=== PATIENT | male | born 1950 | race Caucasian/White ===

== ENCOUNTER → 2022-06-24 10:58 | Outpatient (CLI) | payer MEDICARE, OTHER, SELFPAY ==
[2022-06-24 11:33] LABS: Basophils # 0.1 K/mm3 (0-0.2); Basophils % 0.5 % (0.1-2.0); Eosinophils # 0.2 K/mm3 (0.0-0.4); Eosinophils % 1.2 % (0.1-12.0); Hematocrit 46.2 % (42.0-52.0); Hemoglobin 15.2 g/dL (14.1-18.0); Lymphocytes # 3.1 K/mm3 (0.7-4.5); Lymphocytes % 16.4 % (10-50); Mean Corpuscular Hemoglobin 32.1 pg (27.0-31.2); Mean Corpuscular Volume 97.2 fl (80-94); Mean Platelet Volume 8.2 fl (7.4-10.4); Monocytes # 1.5 K/mm3 (0.1-1.0); Monocytes % 8.1 % (1.7-9.3); Neutrophils % 73.8 % (37.0-80.0); Platelet Count 358 K/mm3 (142-424); Red Blood Count 4.75 M/mm3 (4.60-6.20); Red Cell Distribution Width 12.7 % (11.5-17.5); White Blood Count 18.9 K/mm3 (4.8-10.8)
[2022-06-24 11:38] LABS: MANUAL DIFFERENTIAL MANUAL DIFFERENTIAL (MANUAL DIFF)
[2022-06-24 12:14] LABS: Anion Gap 13.6 mEq/L (5-15); Blood Urea Nitrogen 20 mg/dl (9-20); Calcium 9.2 mg/dl (8.4-10.2); Carbon Dioxide 28 mmol/L (22.0-30.0); Chloride 97 mmol/L (98-107); Estimated Glomerular Filt Rate 73 ml/min (>60); GFR (African American) 89 ML/MIN (>60); Glucose 88 mg/dl (74-100); Potassium 4.6 mmoL/L (3.5-5.1); Sodium 134 mmol/L (136-145)
[2022-06-24 12:25] LABS: Lymphocytes % 19 % (10-50); Monocytes % 8 % (2-9); Neutrophils % 73 % (42-76); Platelet Estimate Normal; RBC Morphology Normal; Total Cells Counted 100
== END ==
PROVIDERS: PCP Family Medicine; Visit Provider Surgery
DX: K61.0 Anal abscess (principal)
CPT/HCPCS: 36415; 80048; 85007; 85025

== ENCOUNTER 2022-06-24 12:25 | Day surgery (SDC) | payer MEDICARE, OTHER, SELFPAY ==
[2022-06-24] VITALS (9 sets, daily range): BP systolic 141–163; BP diastolic 78–89; PULSE 85–100; RESP 15–20; TEMP 36.3–43; O2SAT 92–100; BMI 25.8
--- NOTE | 2022-06-24 15:16 | P.OP_ITS ---
Date of procedure: 06/24/22 Pre-op Diagnosis:: Perianal abscess Post-op Diagnosis:: Perirectal abscess Procedure performed:: Incision and drainage of complex perirectal abscess Surgeon:: David Lopez MD CIRCULAR SAWYER STONE:: Other Anesthesia: LMA Estimated blood loss (mL): 15 Clinical Note:: Patient is a 71-year-old male referred by Dr. Gonzalez for hemorrhoids.? Patient states that he had recently had some constipation last week and had to strain for bowel movements.? He had acute pain at the anorectal area.? He has been unable to sit.? He has not noticed any bleeding.? He does state that he had previously had hemorrhoid problems in the past and had them lanced .? He is unsure as to the details and nature of this.? He did have a colonoscopy with polyps in 2018. Patient was seen and examined in the office as an urgent outpatient evaluation earlier today. He was found to have some complex hemorrhoids. However, most notable was a left anterior lateral area of fluctuance with some induration which was tender consistent with probable perianal abscess. Arrangements were made for urgent incision and drainage. Patient was actually shown to have a leukocytosis of 19,000. He had complained of some urinary hesitancy. Operative findings:: He had a large complex perirectal abscess with tracking toward the perineum anteriorly. There is a very large amount of very foul-smelling thick pus. Operative note:: Consent was obtained patient was taken to the operating room. He was given preoperative intravenous antibiotics. In the operating room he was placed in a supine position. General anesthesia was induced via LMA. He was repositioned in modified lithotomy position. The area was prepped and draped in the standard surgical fashion. At this time in the operating room lighting he was found to have more significant erythema and induration as was noted in the office setting with some tracking of induration anteriorly towards the scrotum. Limited incision was made overlying the area of fluctuance. There was a large amount of thick extremely foul-smelling pus which exuded from the wound. This was sent for cultures. The wound was probed. There was tracking anteriorly. It was opened somewhat anteriorly to allow for good evacuation. Wound was probed breaking free any loculations. Wound was thoroughly irrigated with saline. Wetmore anoscope was inserted as the wound was probed and there was no definite communication with the rectal canal but it was very thin and tissue coverage between the abscess and rectal lumen. Local anesthetic was infiltrated. The wound was packed with a 1 inch plain packing gauze. Clean dry sterile dressing was applied. I will make arrangements for him to continue outpatient oral antibiotics and have the wound packed through outpatient. I will see him in the office in a few days. He is at risk of forming perianal fistula. Condition: stable Disposition: PACU Complications:: None immediately apparent
--- NOTE | 2022-06-24 15:39 | P.PN_ITS ---
[facility] Disclaimer: The information contained in this section may have been updated after the patient was seen, as this information can be updated by other users. Medical History History of inguinal hernia Surgical History History of colonoscopy History of inguinal hernia repair Family History (Updated 06/24/22 @ 13:25 by Gudelia Cassidy RN) Other Family history of cancer Social History (Updated 06/24/22 @ 13:25 by Gudelia Cassidy RN) Smoking Status: Current every day smoker alcohol intake: current substance use type: denies use current occupational status: retired Travel in the last 8 weeks: None household members: other housing: house lives independently: Yes marital status: single education level: high school service: No do you feel safe at home: Yes victim of physical abuse: No victim of emotional abuse: No victim of sexual abuse: No would you like helpful sources: No [facility] Anesthesia Checklist Patient Identification Patient Identification: Arm Band and Family Structural Data Admitted From: Home Planned Operative Procedure/s: I and D Rectal abscess Consent for Planned Operative Procedure(s) Verified: Yes Verified Documents: Surgical Consent and History and Physical NPO Status Verified Time NPO: 00:00 Additional verifications Patient : No Anesthesia Reactions: No Hx Blood Transfusions: No Blood Transfusion Reaction: No Cephalosporin Allergy: No Previous Colonoscopy: No Cardiovascular Assessment Peripheral Edema: No Airway Assessment C-Spine Mobility Assessed: Yes TMJ Mobility Assessed: Yes Dentition: Poor Dentition Neurological Assessment Level of Consciousness: Awake, Alert, Appropriate and Follows Commands Hx Seizures: No Numbness or tingling in extremities: No Anesthesia Plan Anesthesia Risk discussed: Yes ASA Class: II Anesthesia Type: General
--- NOTE | 2022-06-24 15:40 | EXP.ANES.I ---
[facility] Anesthesia Record Part I Anesthesia Record I Intake, IV Amount: 600 Estimated blood loss (mL): 0 Urine output (mL): 0 Blood Products used (#): none Blood Pressure: 149/80 SaO2: 92 Pulse Rate: 88 Respiratory Rate: 20 Temperature: 97.4 F Patient is:: Drowsy and Stable Stable to PACU at:: 15:26
--- NOTE | 2022-06-26 08:25 | EXP.ANES.II ---
[facility] Anesthesia Record Part II Anesthesia Record Part II Discharge Time: 15:46 Destination: Surgical Day Care (OP Surgery) PACU nurse assessment reviewed?: Yes Patient Condition:: Good Anesthesia Complications:: None Swallowing reflex intact?: Yes Cyanosis?: No Blood Pressure: 150/83 Pulse Rate: 88 Temperature: 99.2 F Mental Status: Alert & Oriented Pain level:: 0 Nausea and/or vomitting:: None Intake, IV Amount: 0
[2022-06-26 08:26] VITALS: BP 150/83; PULSE 88; TEMP 37.3
== END 2022-06-24 16:24 | disposition home or self-care (01) ==
PROVIDERS: PCP Family Medicine; Visit Provider Surgery
DX: K61.1 Rectal abscess (principal); Z72.0 Tobacco use; Z79.899 Other long term (current) drug therapy
CPT/HCPCS: 46040; 36415; 80048; 85007; 85025; 87070; 87075; 87077; 87186; 87205; 96374; J2405

== ENCOUNTER 2022-06-25 12:39 | Outpatient (CLI) | payer MEDICARE, OTHER, SELFPAY | END 2022-06-25 13:10 | disposition home or self-care (01) | LOC: INF 12:41 | PROVIDERS: PCP Family Medicine; Visit Provider Surgery | DX: Z48.01 Encounter for change or removal of surgical wound dressing (principal); K61.0 Anal abscess | CPT/HCPCS: G0463 ==

== ENCOUNTER 2022-06-26 12:47 | Outpatient (CLI) | payer MEDICARE, OTHER, SELFPAY | END 2022-06-26 13:23 | disposition home or self-care (01) | LOC: INF 12:48 | PROVIDERS: PCP Obstetrics & Gynecology; Visit Provider Surgery | DX: K61.0 Anal abscess; Z48.01 Encounter for change or removal of surgical wound dressing | CPT/HCPCS: G0463 ==

== ENCOUNTER 2022-06-27 12:40 | Outpatient (CLI) | payer MEDICARE, OTHER, SELFPAY | END 2022-06-27 13:15 | disposition home or self-care (01) | LOC: INF 12:40 | PROVIDERS: PCP Family Medicine; Visit Provider Surgery | DX: K61.0 Anal abscess (principal); Z48.01 Encounter for change or removal of surgical wound dressing | CPT/HCPCS: G0463 ==

== ENCOUNTER 2022-06-28 12:41 | Outpatient (CLI) | payer MEDICARE, OTHER, SELFPAY ==
[2022-06-28 13:08] VITALS: BMI 26.6
== END 2022-06-28 13:28 | disposition home or self-care (01) ==
PROVIDERS: PCP Family Medicine; Visit Provider Surgery
DX: K61.0 Anal abscess (principal); Z48.01 Encounter for change or removal of surgical wound dressing
CPT/HCPCS: G0463

== ENCOUNTER 2022-06-29 12:38 | Outpatient (CLI) | payer MEDICARE, OTHER, SELFPAY ==
[2022-06-29 12:45] VITALS: BMI 26.6
[2022-06-29 13:17] VITALS: BP 139/77; PULSE 98; RESP 16; TEMP 36.4; O2SAT 98
== END 2022-06-29 13:11 | disposition home or self-care (01) ==
LOC: INF 12:40
PROVIDERS: PCP Family Medicine; Visit Provider Surgery
DX: K61.0 Anal abscess (principal); Z48.01 Encounter for change or removal of surgical wound dressing
CPT/HCPCS: G0463

== ENCOUNTER 2022-06-30 12:54 | Outpatient (CLI) | payer MEDICARE, OTHER, SELFPAY | END 2022-06-30 13:25 | disposition home or self-care (01) | LOC: INF 12:54 | PROVIDERS: PCP Family Medicine; Visit Provider Surgery | DX: K61.0 Anal abscess (principal); Z48.01 Encounter for change or removal of surgical wound dressing | CPT/HCPCS: G0463 ==

== ENCOUNTER 2022-07-01 12:56 | Outpatient (CLI) | payer MEDICARE, OTHER, SELFPAY | END 2022-07-01 13:15 | disposition home or self-care (01) | LOC: INF 12:56 | PROVIDERS: PCP Family Medicine; Visit Provider Surgery | DX: K61.0 Anal abscess (principal); Z48.01 Encounter for change or removal of surgical wound dressing | CPT/HCPCS: G0463 ==

== ENCOUNTER 2022-07-02 12:50 | Outpatient (CLI) | payer MEDICARE, OTHER, SELFPAY | END 2022-07-02 13:00 | disposition home or self-care (01) | LOC: INF 12:51 | PROVIDERS: PCP Family Medicine; Visit Provider Surgery | DX: K61.0 Anal abscess (principal); Z48.01 Encounter for change or removal of surgical wound dressing | CPT/HCPCS: G0463 ==

== ENCOUNTER 2022-07-04 13:49 | Outpatient (CLI) | payer MEDICARE, OTHER, SELFPAY | END 2022-07-04 14:20 | disposition home or self-care (01) | LOC: INF 13:50 | PROVIDERS: PCP Family Medicine; Visit Provider Surgery | DX: K61.0 Anal abscess (principal); Z48.01 Encounter for change or removal of surgical wound dressing | CPT/HCPCS: G0463 ==

== ENCOUNTER 2022-07-05 12:23 | Outpatient (CLI) | payer MEDICARE, OTHER, SELFPAY ==
[2022-07-05 12:44] VITALS: BP 145/78; PULSE 82; RESP 20; TEMP 36.9; O2SAT 97
== END 2022-07-05 12:50 | disposition home or self-care (01) ==
LOC: INF 12:25
PROVIDERS: PCP Family Medicine; Visit Provider Surgery
DX: K61.0 Anal abscess (principal); Z48.01 Encounter for change or removal of surgical wound dressing
CPT/HCPCS: G0463

== ENCOUNTER 2022-07-06 12:12 | Outpatient (CLI) | payer MEDICARE, OTHER, SELFPAY ==
[2022-07-06 12:20] VITALS: BP 156/85; PULSE 82; RESP 20; O2SAT 96
== END 2022-07-06 12:40 | disposition home or self-care (01) ==
LOC: INF 12:13
PROVIDERS: PCP Family Medicine; Visit Provider Surgery
DX: K61.0 Anal abscess (principal); Z48.01 Encounter for change or removal of surgical wound dressing
CPT/HCPCS: G0463

== ENCOUNTER 2022-07-07 14:16 | Outpatient (CLI) | payer MEDICARE, OTHER, SELFPAY | END 2022-07-07 14:35 | disposition home or self-care (01) | LOC: INF 14:17 | PROVIDERS: PCP Family Medicine; Visit Provider Surgery | DX: K61.0 Anal abscess (principal); Z48.01 Encounter for change or removal of surgical wound dressing | CPT/HCPCS: G0463 ==

== ENCOUNTER 2022-07-08 13:11 | Outpatient (CLI) | payer MEDICARE, OTHER, SELFPAY | END 2022-07-08 13:30 | disposition home or self-care (01) | LOC: INF 13:14 | PROVIDERS: PCP Family Medicine; Visit Provider Surgery | DX: K61.0 Anal abscess (principal); Z48.01 Encounter for change or removal of surgical wound dressing | CPT/HCPCS: G0463 ==

== ENCOUNTER 2022-07-09 10:56 | Outpatient (CLI) | payer MEDICARE, OTHER, SELFPAY | END 2022-07-09 11:12 | disposition home or self-care (01) | LOC: INF 10:57 | PROVIDERS: PCP Family Medicine; Visit Provider Surgery | DX: K61.0 Anal abscess (principal); Z48.01 Encounter for change or removal of surgical wound dressing | CPT/HCPCS: G0463 ==

== ENCOUNTER 2022-07-10 12:52 | Outpatient (CLI) | payer MEDICARE, OTHER, SELFPAY | END 2022-07-10 13:05 | disposition home or self-care (01) | LOC: INF 12:52 | PROVIDERS: PCP Family Medicine; Visit Provider Surgery | DX: K61.1 Rectal abscess (principal); Z48.01 Encounter for change or removal of surgical wound dressing | CPT/HCPCS: G0463 ==

== ENCOUNTER 2022-07-11 13:07 | Outpatient (CLI) | payer MEDICARE, OTHER, SELFPAY | END 2022-07-11 13:20 | disposition home or self-care (01) | LOC: INF 13:08 | PROVIDERS: PCP Family Medicine; Visit Provider Surgery | DX: Z48.01 Encounter for change or removal of surgical wound dressing (principal); K61.0 Anal abscess | CPT/HCPCS: G0463 ==

== ENCOUNTER → 2022-07-12 12:28 | Outpatient (CLI) | payer MEDICARE, OTHER, SELFPAY ==
[2022-07-12 14:26] VITALS: BP 154/87; PULSE 87; RESP 20; TEMP 36.7; O2SAT 97
== END ==
PROVIDERS: PCP Family Medicine; Visit Provider Surgery
DX: Z48.01 Encounter for change or removal of surgical wound dressing (principal); K61.0 Anal abscess
CPT/HCPCS: G0463

== ENCOUNTER → 2022-07-13 13:37 | Outpatient (CLI) | payer MEDICARE, OTHER, SELFPAY ==
[2022-07-13 02:20] VITALS: BP 177/90; PULSE 90; RESP 20; TEMP 36.7; O2SAT 92
[2022-07-13 13:47] VITALS: BMI 26.6
--- NOTE | 2022-07-13 14:20 | PC.NURSE ---
DSG changed. Packed with Nugauze. Placed 2x2 with tegaderm.
== END ==
PROVIDERS: PCP Family Medicine; Visit Provider Surgery
DX: Z48.01 Encounter for change or removal of surgical wound dressing (principal); K61.0 Anal abscess
CPT/HCPCS: G0463

== ENCOUNTER 2022-07-14 13:51 | Outpatient (CLI) | payer MEDICARE, OTHER, SELFPAY | END 2022-07-14 14:17 | disposition home or self-care (01) | LOC: INF 13:51 | PROVIDERS: PCP Family Medicine; Visit Provider Surgery | DX: Z48.01 Encounter for change or removal of surgical wound dressing (principal); K61.0 Anal abscess | CPT/HCPCS: G0463 ==

== ENCOUNTER 2022-07-15 12:53 | Outpatient (CLI) | payer MEDICARE, OTHER, SELFPAY | END 2022-07-15 13:10 | disposition home or self-care (01) | LOC: INF 12:55 | PROVIDERS: PCP Family Medicine; Visit Provider Surgery | DX: Z48.01 Encounter for change or removal of surgical wound dressing (principal); K61.0 Anal abscess | CPT/HCPCS: G0463 ==

== ENCOUNTER 2022-07-16 12:50 | Outpatient (CLI) | payer MEDICARE, OTHER, SELFPAY | END 2022-07-16 13:45 | disposition home or self-care (01) | LOC: INF 12:51 | PROVIDERS: PCP Family Medicine; Visit Provider Surgery | DX: K61.0 Anal abscess (principal); Z48.01 Encounter for change or removal of surgical wound dressing | CPT/HCPCS: G0463 ==

== ENCOUNTER 2022-10-03 08:18 | Day surgery (SDC) | payer MEDICARE, OTHER, SELFPAY ==
[2022-09-30 14:26] VITALS: BMI 25.8
[2022-10-03 08:28] VITALS: BP 167/107; PULSE 89; RESP 18; TEMP 36.6; O2SAT 94
--- NOTE | 2022-10-03 08:53 | P.PNANES_ITS ---
[facility] Disclaimer: The information contained in this section may have been updated after the patient was seen, as this information can be updated by other users. Medical History History of inguinal hernia Surgical History History of colonoscopy History of incision and drainage History of inguinal hernia repair Family History Other Family history of cancer Social History Smoking Status: Current every day smoker alcohol intake: current substance use type: denies use current occupational status: retired Travel in the last 8 weeks: None household members: other housing: house lives independently: Yes marital status: single education level: high school service: No caffeine: Yes do you feel safe at home: Yes victim of physical abuse: No victim of emotional abuse: No victim of sexual abuse: No would you like helpful sources: No [facility] Anesthesia Checklist Patient Identification Patient Identification: Arm Band Structural Data Admitted From: Home Planned Operative Procedure/s: Colonoscopy Consent for Planned Operative Procedure(s) Verified: Yes Verified Documents: Surgical Consent and History and Physical NPO Status Verified Time NPO: 07:00 (black coffee) Additional verifications Anesthesia Reactions: No Hx Blood Transfusions: No Blood Transfusion Reaction: No Airway Assessment C-Spine Mobility Assessed: Yes TMJ Mobility Assessed: Yes Dentition: Good Dentition Neurological Assessment Level of Consciousness: Awake and Alert Anesthesia Plan Anesthesia Risk discussed: Yes Anesthesia Plan: Verified ASA Class: II Anesthesia Type: MAC
--- NOTE | 2022-10-03 09:12 | EXP.GEN.HP ---
HPI HPI HPI: Patient presents for colonoscopy. He is a 71-year-old male who underwent incision and drainage of perianal abscess on 06/24/2022. The area has healed. He has not had any drainage. He does take a couple stool softeners. He previously had stated he is due for a colonoscopy. He had previous colonoscopy he believes about 5 or 6 years ago and believes he had polyps. He was scheduled for colonoscopy. [facility] Disclaimer: The information contained in this section may have been updated after the patient was seen, as this information can be updated by other users. Medical History History of inguinal hernia Surgical History History of colonoscopy History of incision and drainage History of inguinal hernia repair Family History Other Family history of cancer Social History Smoking Status: Current every day smoker alcohol intake: current substance use type: denies use current occupational status: retired Travel in the last 8 weeks: None household members: other housing: house lives independently: Yes marital status: single education level: high school service: No caffeine: Yes do you feel safe at home: Yes victim of physical abuse: No victim of emotional abuse: No victim of sexual abuse: No would you like helpful sources: No Meds Home Medications and Allergies Home Medications Medication Instructions Recorded Confirmed Type metoprolol succinate 25 mg 25 mg PO DAILY HTN 06/24/22 10/03/22 History tablet,extended release 24 hr New Prescriptions to Start Prescriptions: Allergies Allergy/AdvReac Type Severity Reaction Status Date / Time No Known Allergies Allergy Verified 10/03/22 08:27 Exam Data for Last 24 hours Vital signs and Labs for Last 24 Hours: Temp Pulse Resp BP Pulse Ox O2 Del Method 98 F 89 18 167/107 H 94 L Room Air 10/03/22 08:28 10/03/22 08:28 10/03/22 08:28 10/03/22 08:28 10/03/22 08:28 10/03/22 08:28 I & O for Last 24 hours: Intake & Output 09/30/22 10/01/22 10/02/22 10/03/22 11:59 11:59 11:59 11:59 Weight 170 lb Constitutional Constitutional: no acute distress *Routine HEENT Exam Head: Present normocephalic Eye: Present EOMI and PERRL ENT: Present mucous membranes moist *Routine Neck Exam Neck: Present supple; Absent lymphadenopathy *Routine Respiratory Exam Respiratory: Present CTA bilaterally *Routine Cardiovascular Exam Cardiovascular: Present RRR *Routine Abdominal Exam Abdominal: Present soft and normoactive bowel sounds; Absent tenderness *Routine Rectal Exam Rectal:: deferred *Routine Genitalia Exam Genitalia:: deferred *Routine Extremities Exam Extremities: Absent cyanosis, clubbing or edema *Routine Skin Exam Skin: Present warm; Absent rash *Routine Neurological Exam Neurological: Present alert and oriented X3 Assessment and Plan *Assessment and plan (1) History of colon polyps: Status: Acute Category: Medical Code(s): Z86.010 - Personal history of colonic polyps Plan Colonoscopy
--- NOTE | 2022-10-03 10:29 | HMH.SCOPE ---
Procedure: Date: 10/03/22 Patient Date of :: 1950 Procedure Performed:: Total colonoscopy to terminal ileum with numerous polypectomy Indications:: Patient presents for colonoscopy. He is a 71-year-old male who underwent incision and drainage of perianal abscess on 06/24/2022. The area has healed. He has not had any drainage. He does take a couple stool softeners. He previously had stated he is due for a colonoscopy. He had previous colonoscopy he believes about 5 or 6 years ago and believes he had polyps. He was scheduled for colonoscopy. Performing Provider:: David Lopez MD Referring Provider:: Frank Gonzalez MD Sedation:: MAC sedation Procedure:: Patient history was obtained and appropriate physical examination was performed. Patient's medications and allergies were reviewed. Informed consent was obtained after explaining the benefits, alternatives, and risks of the procedure including, but not limited to, bleeding, perforation, missed lesions, and adverse reaction to anesthesia medications. Patient was transported to endoscopy procedure room. Patient was connected to monitoring devices. Throughout the procedure the patient's blood pressure, pulse, and oxygen saturations were monitored continuously. Patient identification and planned procedure were verified by the staff. Patient was positioned in lateral decubitus position. Digital anorectal exam was performed. Variable stiffness Olympus colonoscope was inserted and advanced under direct visualization to the cecum. Adequacy of the colonic preparation was noted. The colonoscope was advanced a short distance into the terminal ileum. The colonoscope was then slowly withdrawn while carefully examining the color, texture, anatomy, and integrity of the mucosoa circumferentially. Within the rectum retroflexion was performed. Colonoscope was then withdrawn. Findings:: Colonic preparation was fair but good visualization was achieved with irrigation and suctioning. He had pandiverticulosis with significant diverticular disease of the left colon. In the cecum there was an adenomatous appearing polyp, moderate, removed with cold snare. Immediately distal to the ileocecal valve there was a tiny adenomatous appearing polyp removed with biopsy forceps. In the ascending colon there was a flat sessile irregular adenomatous polyp removed in a piecemeal fashion using hot snare. This was just distal to the previously mentioned polyp. In the transverse colon there was a polyp removed with cold snare. Ascending colon polyp removed with biopsy forceps in a piecemeal fashion. The sigmoid: There was a polyp removed with cold snare. Numerous left-sided polyps were noted which appeared hyperplastic. Rectosigmoid polyps were biopsied with biopsy forceps and 1 removed, larger 1, with a hot snare. In the rectum he had several hyperplastic appearing polyps, the larger were sampled with biopsy x4 and a couple with cold snare and 1 with hot snare. Retroflexion revealed evidence of prolapsing internal hemorrhoids. Colonoscope was withdrawn. . . Impression: Pandiverticulosis Numerous polyps as noted above, total of 15 polyps. Most notable was the ascending polyp removed in piecemeal fashion with hot snare. Most of the left-sided polyps appeared hyperplastic. Recommendations:: Follow-up colonoscopy pending pathology. Possibly as early as 1 year to ensure complete removal of the flat sessile adenomatous polyp in the ascending colon and reevaluate the numerous left-sided polyps. Complications:: None immediate Estimated blood obtained (mL): 2 Colonoscopy Component Colonoscopy Component Was a colonoscopy performed during today's procedure?: Yes Recommended follow up colonoscopy of at least 10 years?: No If no, follow up colonoscopy recommended in ___ years?: 1-2 Reason for not recommending >/= 10 yr follow-up interval?: See recommendations above
[2022-10-03 10:30] VITALS: BP 113/60; PULSE 59; RESP 14; TEMP 36.4; O2SAT 97
[2022-10-03 10:40] VITALS: BP 104/50; PULSE 58; RESP 16; O2SAT 96
[2022-10-03 10:50] VITALS: BP 122/72; PULSE 58; RESP 16; O2SAT 97
[2022-10-03 11:00] VITALS: BP 110/70; PULSE 58; RESP 18; TEMP 36.6; O2SAT 98
== END 2022-10-03 11:05 | disposition home or self-care (01) ==
PROVIDERS: PCP Family Medicine; Visit Provider Surgery
PROC: 0DJD8ZZ Inspection of Lower Intestinal Tract, Via Natural or Artificial Opening Endoscopic (ICD-10-PCS; principal; 2022-10-03 09:30)
DX: Z86.010 Personal history of colon polyps (principal); Z12.11 Encounter for screening for malignant neoplasm of colon; D12.0 Benign neoplasm of cecum; D12.2 Benign neoplasm of ascending colon; D12.3 Benign neoplasm of transverse colon; D12.5 Benign neoplasm of sigmoid colon; K57.30 Diverticulosis of large intestine without perforation or abscess without bleeding
CPT/HCPCS: 45380; 45385; 88305; J2704

== ENCOUNTER 2023-11-19 07:29 | Day surgery (SDC) | payer MEDICARE, OTHER, SELFPAY ==
[2023-11-16 13:40] VITALS: BMI 26.6
[2023-11-19] MEDS: LACTATED RINGERS 1000ML 1,000 ML 25 ML IV (07:43)
[2023-11-19 07:48] VITALS: BP 157/90; PULSE 81; RESP 18; TEMP 36.1; O2SAT 94
--- NOTE | 2023-11-19 08:15 | HMH.SCOPE ---
Procedure: Date: 11/19/23 Patient Date of :: 1950 Procedure Performed:: Total colonoscopy to terminal ileum with multiple polypectomy Indications:: Patient is a 73-year-old male from [facility]. Primary care provider is Jeremy Gonzalez MD. After he had recovered and healed from that he stated he was due for a colonoscopy. He did have a previous colonoscopy about 5 or 6 years ago in [place]. I performed colonoscopy on 10/03/2022. He was found to have pandiverticulosis with a total of 14 polyps removed many of which appeared to be hyperplastic. Most notable polyp was in the ascending colon which was removed in a piecemeal fashion using hot snare. Pathology revealed at least 5 tubular adenomas and a sessile serrated adenoma in the cecum. Given the large number of polyps and to rule out early recurrence of the polyp in the ascending colon recommendations were for follow-up colonoscopy in 1 year. . Performing Provider:: David Lopez MD . Referring Provider:: Jeremy Gonzalez MD . Sedation:: MAC sedation . Procedure:: Patient history was obtained and appropriate physical examination was performed. Patient's medications and allergies were reviewed. Informed consent was obtained after explaining the benefits, alternatives, and risks of the procedure including, but not limited to, bleeding, perforation, missed lesions, and adverse reaction to anesthesia medications. Patient was transported to endoscopy procedure room. Patient was connected to monitoring devices. Throughout the procedure the patient's blood pressure, pulse, and oxygen saturations were monitored continuously. Patient identification and planned procedure were verified by the staff. Patient was positioned in lateral decubitus position. Digital anorectal exam was performed. Variable stiffness Olympus colonoscope was inserted and advanced under direct visualization to the cecum. Adequacy of the colonic preparation was noted. The colonoscope was advanced a short distance into the terminal ileum. The colonoscope was then slowly withdrawn while carefully examining the color, texture, anatomy, and integrity of the mucosoa circumferentially. Within the rectum retroflexion was performed. Colonoscope was then withdrawn. Impression: In the right colon there was some liquid pasty stool. This was ultimately able of the cleared with high-volume trans colonoscopic irrigation and suctioning. There was evidence of some pandiverticulosis with significant sigmoid diverticuli. In the distal transverse colon there was a sessile polyp removed with cold snare with residual tissue removed with biopsy forceps. In the descending colon there was a tiny polyp removed with biopsy forceps. Rectosigmoid there were numerous likely hyperplastic polyps which were sampled with biopsy forceps. In the rectosigmoid region there was also a somewhat larger polyp which was removed with cold snare and sent as separate specimen rectosigmoid polyp #2. He had internal prolapsing hemorrhoids. . Findings:: Liquid pasty stool adherent to the lucio of the right colon, ultimately cleared with high-volume trans colonoscopic irrigation and suctioning Pandiverticulosis with significant sigmoid diverticulosis Polyps as noted above, mostly hyperplastic appearing . Recommendations:: Repeat colonoscopy pending pathology. Likely 2 or 3 years. Complications:: None immediately apparent Estimated blood obtained (mL): 2 Colonoscopy Component Colonoscopy Component Was a colonoscopy performed during today's procedure?: Yes Recommended follow up colonoscopy of at least 10 years?: No If no, follow up colonoscopy recommended in ___ years?: 2-3 Reason for not recommending >/= 10 yr follow-up interval?: See above
--- NOTE | 2023-11-19 08:18 | P.PNANES_ITS ---
[facility] Disclaimer: The information contained in this section may have been updated after the patient was seen, as this information can be updated by other users. Medical History Arrhythmia Skin cancer COPD (chronic obstructive pulmonary disease) Hemorrhoid Skin cancer History of inguinal hernia Surgical History (Updated 11/19/23 @ 07:45 by Duarte Morales RN) History of surgical removal of lesion History of incision and drainage History of inguinal hernia repair History of colonoscopy Family History Other Family history of cancer Social History Smoking Status: Current every day smoker tobacco type: cigarettes packs per day: 2 alcohol intake: current substance use type: denies use current occupational status: employed Travel in the last 8 weeks: None household members: other housing: house lives independently: Yes marital status: single education level: high school service: No caffeine: Yes special felix needs: No agree to transfusion: No do you feel safe at home: Yes victim of physical abuse: No victim of emotional abuse: No victim of sexual abuse: No would you like helpful sources: No [facility] Anesthesia Checklist Patient Identification Patient Identification: Arm Band, Family and Verbal (Name & ) Structural Data Admitted From: Home Planned Operative Procedure/s: Colonoscopy Consent for Planned Operative Procedure(s) Verified: Yes Verified Documents: History and Physical NPO Status Verified Time NPO: 06:00 Chart Verification Results Verified: CBC and BMP Additional verifications Patient : No Anesthesia Reactions: No Hx Blood Transfusions: No Blood Transfusion Reaction: No Previous Colonoscopy: Yes Cardiovascular Assessment Heart Sounds: S1 & S2 Pulse Rhythm: Irregular Peripheral Edema: No Airway Assessment Mallampati Score:: Class II C-Spine Mobility Assessed: Yes (FROM Demonstrated) TMJ Mobility Assessed: Yes Dentition: Poor Dentition (Many missing. Nothing loose per pt.) Neurological Assessment Level of Consciousness: Awake, Alert, Appropriate and Follows Commands Hx Seizures: No Numbness or tingling in extremities: No Anesthesia Plan Anesthesia Risk discussed: Yes Anesthesia Plan: Verified ASA Class: III Anesthesia Type: MAC Preoperative Comments Pre-Operative Comments: Pt.'s ASA physical status III d/t age, heavy smoking 2ppd x 50+years, & arrhythmia.
[2023-11-19 08:25] VITALS: O2SAT 97
[2023-11-19 09:17] VITALS: BP 102/52; PULSE 71; RESP 18; TEMP 36.6; O2SAT 96
[2023-11-19 09:27] VITALS: BP 99/59; PULSE 81; RESP 18; O2SAT 96
[2023-11-19 09:37] VITALS: BP 122/68; PULSE 56; RESP 18; O2SAT 95
[2023-11-19 09:44] VITALS: BP 136/73; PULSE 72; RESP 18; O2SAT 95
== END 2023-11-19 09:54 | disposition home or self-care (01) ==
PROVIDERS: PCP Family Medicine; Visit Provider Surgery
PROC: 0DJD8ZZ Inspection of Lower Intestinal Tract, Via Natural or Artificial Opening Endoscopic (ICD-10-PCS; CPT 45380; principal; 2023-11-19 08:30)
DX: Z12.11 Encounter for screening for malignant neoplasm of colon (principal); Z09 Encounter for follow-up examination after completed treatment for conditions other than malignant neoplasm; Z86.010 Personal history of colon polyps; K57.30 Diverticulosis of large intestine without perforation or abscess without bleeding; D12.7 Benign neoplasm of rectosigmoid junction; D12.4 Benign neoplasm of descending colon; D12.3 Benign neoplasm of transverse colon
CPT/HCPCS: 45380; 45385; J7120